=== PATIENT | male | born 2000 | race Two or more races ===

== ENCOUNTER 2021-04-24 22:05 | Emergency (ER) | payer SELFPAY ==
[~2021-04-24] VITALS: Ht 165.1 cm; Wt 87.0 kg
[2021-04-24] MEDS ORDERED: KETOROLAC 30MG/ML VIAL IV ONE (22:30)
[2021-04-25 00:09] LABS: BASOPHILS % 0.4 % (0.0-2.0); EOSINOPHILS % 0.7 % (0.0-5.0); HEMATOCRIT. 43.1 % (42.0-52.0); HEMOGLOBIN. 15.2 g/dL (14.0-18.0); LYMPHOCYTES % 22.5 % (20.0-50.0); MEAN CORPUSCULAR HEMOGLOBIN 32.7 pg (28.0-32.0); MEAN CORPUSCULAR VOLUME 92.9 fL (80.0-94.0); MEAN PLATELET VOLUME 7.9 fl (7.4-10.4); MONOCYTES % 7.2 % (2.0-8.0); NEUTROPHILS % 69.2 % (40.0-76.0); PLATELET 360 x1000/uL (130-400); RED BLOOD CELL COUNT 4.63 mill/uL (4.7-6.1)
[2021-04-25 00:13] LABS: CHLORIDE 108 mEq/L (98-107)
[2021-04-25 00:16] LABS: ETHANOL BLOOD 66 mg/dL
[2021-04-25] MEDS ORDERED: IOHEXOL-300 100 ML BOTTLE ONE (01:00)
[2021-04-25 02:47] VITALS: BP 130/80
== END 2021-04-25 02:47 | disposition home or self-care (01) ==
LOC: ER 22:05
DX: F10.129 Alcohol abuse with intoxication, unspecified (principal); Y90.3 Blood alcohol level of 60-79 mg/100 ml; R10.11 Right upper quadrant pain; W11.XXXA Fall on and from ladder, initial encounter; Y93.89 Activity, other specified; Y92.9 Unspecified place or not applicable
CPT/HCPCS: 36415; 71045; 74177; 80053; 80320; 83690; 85025; 86850; 86900; 86901; 93005; 96374; 99285; J1885; Q9967; G0480